=== PATIENT | female | born 1995 | race African-American/Black ===

== ENCOUNTER 2020-03-19 15:17 | Emergency (ER) | payer OTHER, MEDICAID, SELFPAY ==
[2020-03-19 15:20] VITALS: BP 120/65; PULSE 66; RESP 18; TEMP 37.1; O2SAT 97
--- NOTE | 2020-03-19 15:36 | DI.RAD.S_ITS ---
PROCEDURE: XR FINGER LT MIN 2V INDICATIONS: pain possible crush injury to thumb 3 days ago TECHNIQUE: AP hand, 2 views of the 1st finger(s) acquired. COMPARISON: None. FINDINGS: Bones: No fractures or dislocations. No suspicious bony lesions. Soft tissues: No suspicious soft tissue calcifications. IMPRESSION: No displaced fractures are seen by plain film. Dictated by: Antelmo Patel M.D. on 03/19/2020 at 14:55 Approved by: Antelmo Patel M.D. on 03/19/2020 at 14:56
--- NOTE | 2020-03-19 16:09 | ED.UPPEXIN ---
HPI - Extremity Injury (Upper) General Chief Complaint: Extremity Injury, Upper Stated Complaint: thinks broke left wrist Time Seen by Provider: 03/19/20 15:42 Source: patient Mode of arrival: Ambulatory Limitations: no limitations History of Present Illness HPI narrative: Patient is a 24-year-old female to male transgender presenting with left thumb pain. He says he was moving the chicken coop box around 3 days ago, no definite injury but was definitely banged around a lot and now having pain. No numbness or tingling but over the last few days having decreased range of motion. MD complaint: injury to: left and finger (thumb) Related Data Allergies Allergy/AdvReac Type Severity Reaction Status Date / Time No Known Drug Allergies Allergy Verified 03/19/20 15:24 Review of Systems Review of Systems Narrative: GENERAL: Denies chills,fever HEENT: Denies throat pain RESPIRATORY: Denies dyspnea, cough, wheezing CARDIOVASCULAR: Denies chest pain, palpitations GASTROINTESTINAL: Denies nausea, vomiting MUSCULOSKELETAL: See HPI SKIN: No rash, no laceration, no pruritus NEUROLOGIC: Denies weakness, dizziness, headache, numbness 8 point review of systems is negative except for those stated above and HPI Patient History Substance Use Type: marijuana Exam Initial Vital Signs Initial Vital Signs: Vital Signs Temperature 98.8 F 03/19/20 15:20 Pulse Rate 66 03/19/20 15:20 Respiratory Rate 18 03/19/20 15:20 Blood Pressure 120/65 03/19/20 15:20 Pulse Oximetry 97 03/19/20 15:20 GENERAL: Well-appearing, well-nourished and in no acute distress. CARDIOVASCULAR: peripheral pulses in tact, cap refill <2 sec RESPIRATORY: No respiratory distress, speaks in full sentences without difficulty EXTREMITIES: Normal range of motion, no clubbing or edema. Neurovascularly intact Left hand: Mild tenderness at thumb base against resistance good thumb to pinky opposition no significant swelling or erythema NEUROLOGICAL: Cranial nerves II through XII grossly intact. Normal gait and speech. SKIN: Warm, dry, no petechiae, no rashes or lesions. Procedures Orthopedic Splinting/Casting Injury #1: Side: left Upper Extremity Injury Location: finger Upper Extremity Immobilizer: thumb spica Post splinting neuro exam: intact Post splinting vascular exam: intact Placed by: Nursing Course Orders Ordered: ED Orders 03/19/20 15:36 XR finger LT min 2V Stat Vital Signs Vital signs: Vital Signs - 8 hr 03/19/20 15:20 Temperature 98.8 F Pulse Rate 66 Respiratory Rate 18 Blood Pressure 120/65 Pulse Oximetry 97 MDM - Extremity Injury (Upper) Imaging Data Extremity x-ray #1: Radiologist's Impression: PROCEDURE: XR FINGER LT MIN 2V INDICATIONS: pain possible crush injury to thumb 3 days ago TECHNIQUE: AP hand, 2 views of the 1st finger(s) acquired. COMPARISON: None. FINDINGS: Bones: No fractures or dislocations. No suspicious bony lesions. Soft tissues: No suspicious soft tissue calcifications. IMPRESSION: No displaced fractures are seen by plain film. Dictated by: Antelmo Patel M.D. on 03/19/2020 at 14:55 Discharge Plan Departure Patient Disposition: Home Clinical Impression: Left thumb sprain Qualifiers: Encounter type: initial encounter Sprain of finger site: unspecified site Qualified Code(s): S63.602A - Unspecified sprain of left thumb, initial encounter Discharge Date/Time: 03/19/20 16:45 Instructions: DI for Ulnar Collateral Ligament Sprain of Thumb Activity Restrictions/Additional Instructions: *You have been diagnosed with left thumb sprain *What to do: A keep wrist in a splint, as needed and while active. If still having pain after 7-10 days may require repeat x-ray with your PCP *Continue to take medications as directed Ibuprofen 800 mg every 8 hours if needed for [id number] pain *Follow up with your primary care provider in 2-3 days *Return to ER if you should have increased pain swelling or numbness or any new, worsening or concerning symptoms Referrals: Ene Carcamo PA-C [Primary Care Provider] -
== END 2020-03-19 16:45 | disposition home or self-care (01) ==
PROVIDERS: Emergency Provider Emergency Medicine; PCP Physician Assistant
DX: S63.602A Unspecified sprain of left thumb, initial encounter (principal); X58.XXXA Exposure to other specified factors, initial encounter
CPT/HCPCS: 73140; 99282; 99283

== ENCOUNTER 2020-08-01 16:12 | Emergency (ER) | payer OTHER, MEDICAID, SELFPAY ==
[2020-08-01 16:15] VITALS: BP 150/78; PULSE 60; RESP 18; TEMP 35.8; O2SAT 98; BMI 24.2
--- NOTE | 2020-08-01 16:20 | DI.RAD.S_ITS ---
PROCEDURE: XR HIP W PEL IF DONE LT 2V INDICATIONS: joint pain TECHNIQUE: AP pelvis with lateral view(s) of the left hip(s). COMPARISON: None. FINDINGS: Bones: No fractures or dislocations. Pelvic ring appears intact. No suspicious bony lesions. Soft tissues: The visualized bowel gas pattern is normal. No suspicious soft tissue calcifications. IMPRESSION: No trauma found, source of asymmetric left hip pain is not identified. Dictated by: Marco Owusu M.D. on 08/01/2020 at 17:16 Approved by: Marco Owusu M.D. on 08/01/2020 at 17:17
--- NOTE | 2020-08-01 18:57 | ED_ITS ---
HPI - Extremity Injury (Lower) General Chief Complaint: Extremity Injury, Lower Stated Complaint: Lt hip pain Time Seen by Provider: 08/01/20 18:38 Source: patient Mode of arrival: Ambulatory Limitations: no limitations History of Present Illness HPI Narrative: Patient complains of left hip pain as well as left lower back pain low radiating to left calf and foot. Tingling to the foot. No loss control bowel or bladder. No saddle paresthesia. Patient in no distress. Patient states that 2:00 p.m. today at home was bending over to seed cone picker an item. [place] a pop in the lower back and left hip. History of labrum surgery in the left hip. No recent illness fever chills cough cold congestion. Has not been on any immune suppression for the past 1 1/2 years for her ankylosing spondylitis. Currently moved here within last year and a half. Took Tylenol today. Patient forgot about the diclofenac at home. Currently needs referral to family doctor and Orthopedics/Spine. MD complaint: hip injury Related Data Allergies Allergy/AdvReac Type Severity Reaction Status Date / Time No Known Drug Allergies Allergy Verified 03/19/20 15:24 Review of Systems Review of Systems Narrative: GENERAL: Denies chills, fatigue, malaise, fever, sweats. HEENT: Denies sinus pain, ear pain, sore throat, difficulty swallowing RESPIRATORY: Denies dyspnea, cough CARDIOVASCULAR: Denies chest pain, palpitations, edema, GASTROINTESTINAL: Denies nausea, vomiting, abdominal pain, diarrhea, constipation, melena. : Denies dysuria, frequency, hematuria MUSCULOSKELETAL: Complains of muscle or bony pain SKIN: Denies rash, skin lesions NEUROLOGIC: Denies weakness, headache, complains numbness, denies change in speech, confusion PSYCHIATRIC: No SI or HI or hallucinations ROS Unobtainable: All systems reviewed & are unremarkable except as noted in HPI and below Patient History Social History Smoking Status: Never smoker Smoking Status: Never smoker alcohol intake frequency: 0-2 drinks per day Substance Use Type: marijuana Exam Narrative Exam Narrative: GENERAL: patient appears stated age. Well-nourished, well- developed patient, in no distress, not toxic not dyspneic HEAD: Normocephalic. EYES: Pupils equal round and reactive. No scleral icterus. No injection no discharge ENT: Mucous membranes moist. No drooling no tongue elevation no trismus no malocclusion NECK: Trachea midline. Non tender CARDIOVASCULAR: Regular rate and rhythm without murmurs, gallops, or rubs. RESPIRATORY: Clear to auscultation. Breath sounds equal bilaterally. No wheezes, rales, or rhonchi. GASTROINTESTINAL: Abdomen soft, non-tender, nondistended. EXTREMITIES: No gross deformities. Full active range of motion of left lower extremity. Nontender hip knee ankle and foot. Light touch intact to foot and toes. Strong pedal pulse. No pain with straight leg raise. BACK: Mild reproducible left paralumbar muscle tenderness. Able to fully do side bends left and right hand leaned forward and back. No pain with left straight leg raise. NEURO: AOx4. Steady self gait no footdrop strong bilateral patellar reflexes and ankle flexion extension. Light touch intact to left foot and toes. Strong bilateral hip flexion knee flexion as well as ankle flexion extension SKIN: Warm and dry PSYCH: Not anxious, is cooperative Initial Vital Signs Initial Vital Signs: Vital Signs Temperature 96.5 F L 08/01/20 16:15 Pulse Rate 60 08/01/20 16:15 Respiratory Rate 18 08/01/20 16:15 Blood Pressure 150/78 H 08/01/20 16:15 Pulse Oximetry 98 08/01/20 16:15 Course Course Course Narrative: Patient agrees with Toradol IM shot here. Orders Ordered: Discontinued Medications Ketorolac Tromethamine (Ketorolac 60 Mg/2 Ml Vial) 30 mg IM NOW ONE Stop: 08/01/20 18:51 Reevaluation(s) Reevaluation #1: No new issues at time of discharge. Vital Signs Vital signs: Vital Signs - 8 hr 08/01/20 16:15 Temperature 96.5 F L Pulse Rate 60 Respiratory Rate 18 Blood Pressure 150/78 H Pulse Oximetry 98 MDM - Extremity Injury (Lower) Differential Diagnosis Differential diagnosis: Likely other (Lumbar strain lumbar radiculopathy left hip strain) Imaging Data Extremity x-ray #1: Radiologist's Impression: [address] [id number] ReportSigned Patient: Dinorah Morton [facility]#: [id number]: 1995Acct:[id number]/Sex: 25 / FDate of Service: 08/01/20Loc: EDAccession Number: [id number] Procedure: XR hip w pel if done LT 2V Ordering Provider: Nitin Dowd D.O. PROCEDURE: XR HIP W PEL IF DONE LT 2V INDICATIONS: joint pain TECHNIQUE: AP pelvis with lateral view(s) of the left hip(s). COMPARISON: None. FINDINGS: Bones: No fractures or dislocations. Pelvic ring appears intact. No suspicious bony lesions. Soft tissues: The visualized bowel gas pattern is normal. No suspicious soft tissue calcifications. IMPRESSION: No trauma found, source of asymmetric left hip pain is not identified. Dictated by: Marco Owusu M.D. on 08/01/2020 at 17:16 Approved by: Marco Owusu M.D. on 08/01/2020 at 17:17 [facility] Narrative Medical decision making narrative: Patient agrees for outpatient MRI of lumbar spine as well as left hip. Not urgent this time. No neuro deficits. Patient also agrees with outpatient follow-up with Orthopedics and getting a new family doctor. Patient states has diclofenac at home that was forgot to take today. Appropriate for discharge home. No fever. No MRI or laboratory studies indicated this time. Not on immunosuppression. Discharge Plan Departure Patient Disposition: Home Clinical Impression: Acute left lumbar radiculopathy Low back strain Qualifiers: Encounter type: initial encounter Qualified Code(s): S39.012A - Strain of muscle, fascia and tendon of lower back, initial encounter Strain of left hip Qualifiers: Encounter type: initial encounter Qualified Code(s): S76.012A - Strain of muscle, fascia and tendon of left hip, initial encounter Instructions: DI for Back Strain or Sprain, DI for Lumbar Radiculopathy, DI for Hip Pain Activity Restrictions/Additional Instructions: Return if worse or any questions concerns. Call provided offices to [facility] family doctor as well as Orthopedics and oil and gas specialist to see within 1 or 2 weeks. May need outpatient scheduled for MRI of your left hip as well as lower back. May continue home anti-inflammatory medication. Referrals: [facility] [Outside] Ene Carcamo PA-C [Primary Care Provider] - Quinton Mejia MD [Physician] - Stefano Carrizales MD [Physician] - Stand Alone Forms: Work Release Note
== END 2020-08-01 19:07 | disposition home or self-care (01) ==
PROVIDERS: Emergency Provider Emergency Medicine; PCP Physician Assistant
DX: M54.16 Radiculopathy, lumbar region (principal); S39.012A Strain of muscle, fascia and tendon of lower back, initial encounter; S76.012A Strain of muscle, fascia and tendon of left hip, initial encounter; R20.2 Paresthesia of skin
CPT/HCPCS: 73502; 99283

== ENCOUNTER 2022-01-27 09:58 | Emergency (ER) | payer OTHER, MEDICAID, SELFPAY ==
[2022-01-27 10:22] VITALS: BP 116/79; PULSE 63; RESP 16; TEMP 36; O2SAT 97; BMI 22.6
--- NOTE | 2022-01-27 10:25 | DI.RAD.S_ITS ---
PROCEDURE: XR WRIST LT MIN 3V INDICATIONS: swelling, pain TECHNIQUE: 4 views of the wrist were acquired. COMPARISON: None. FINDINGS: Bones: No fractures or dislocations. No suspicious bony lesions. Scaphoid view: No visualized fracture. Soft tissues: No suspicious soft tissue calcifications. IMPRESSION: No visualized acute fracture or dislocation. However, if clinical concern and/or pain persist, short interval imaging followup in 7-10 days is recommended, as occult injury cannot be definitively excluded. Dictated by: Samantha Vieyra M.D. on 01/27/2022 at 10:48 Approved by: aSmantha Vieyra M.D. on 01/27/2022 at 10:49
--- NOTE | 2022-01-27 12:47 | ED.EXTPRO ---
HPI - Extremity Problem <MARY Santos - Last Filed: 01/27/22 12:52> General Chief complaint: Extremity Problem,Nontraumatic Stated complaint: wrist making clicking sound since thursday Time Seen by Provider: 01/27/22 12:09 History of Present Illness HPI Narrative: This is a 26-year-old male who presents to the emergency department complaining left 2nd for four days, tenderness with movements, history of left wrist injury in the past. Patient states that he has had occasional episodes of numbness and tingling in his fingertips but none currently or recently. He denies any elbow pain, shoulder pain, neck pain. Denies any traumatic insult. Denies any range of motion deficit or strength. Related Data Allergies Allergy/AdvReac Type Severity Reaction Status Date / Time No Known Drug Allergies Allergy Verified 03/19/20 15:24 Review of Systems <MARY Santos - Last Filed: 01/27/22 12:52> Review of Systems Narrative: General: denies fever, chills Head/Neck: denies headache, neck pain Eyes: denies visual changes, eye pain Cardio: denies chest pain, palpitations MSK: denies new joint pain, muscle weakness or swelling, endorses left wrist clicking and popping with history of injury in the past Skin: denies rash, itching or wound Neuro: denies numbness, tingling, dizziness Patient History <MARY Santos - Last Filed: 01/27/22 12:52> Social History Smoking Status: Never smoker Smoking Status: Never smoker alcohol intake frequency: 0-2 drinks per day Substance Use Type: marijuana Exam <MARY Santos - Last Filed: 01/27/22 12:52> Narrative Exam Narrative: Independently reviewed vitals signs and nursing notes. General: Awake, alert, nontoxic, no cardiorespiratory distress Head/Neck: Atraumatic, neck supple Eyes: EOMI, conjunctiva normal Nose:no rhinorrhea Mouth/Throat: moist mucus membranes Cardio: Regular rate and rhythm, no peripheral edema MSK: Moves all extremities, neurovascularly intact, range of motion without deficit in left wrist, radial and ulnar pulse palpable, full range of motion of all fingers without deficit, cap refill is brisk, no tenderness over snuffbox, wrist flexion and extension intact without deficit. Skin: Normal capillary refill, no rash Neuro: Normal speech and cognition, normal gait Initial Vital Signs Initial Vital Signs: Vital Signs Temperature 96.8 F L 01/27/22 10:22 Pulse Rate 63 01/27/22 10:22 Respiratory Rate 16 01/27/22 10:22 Blood Pressure 116/79 01/27/22 10:22 Pulse Oximetry 97 01/27/22 10:22 Oxygen Delivery Method 01/27/22 10:22 <Sharyn Hopson DO - Last Filed: 01/29/22 07:09> Initial Vital Signs Initial Vital Signs: Vital Signs Temperature 96.8 F L 01/27/22 10:22 Pulse Rate 63 01/27/22 10:22 Respiratory Rate 16 01/27/22 10:22 Blood Pressure 116/79 01/27/22 10:22 Pulse Oximetry 97 01/27/22 10:22 Oxygen Delivery Method 01/27/22 10:22 Procedures <MARY Santos - Last Filed: 01/27/22 12:52> Orthopedic Splinting/Casting Injury #1: Side: left Upper Extremity Injury Location: wrist Upper Extremity Immobilizer: wrist splint Post splinting neuro exam: intact Post splinting vascular exam: intact Course <MARY Santos - Last Filed: 01/27/22 12:52> Orders Ordered: ED Orders 01/27/22 10:25 XR wrist LT min 3V Stat Vital Signs Vital signs: Vital Signs - 8 hr 01/27/22 10:22 Temperature 96.8 F L Pulse Rate 63 Respiratory Rate 16 Blood Pressure 116/79 Pulse Oximetry 97 Oxygen Delivery Method Room Air <Sharyn Hopson DO - Last Filed: 01/29/22 07:09> Orders Ordered: ED Orders 01/27/22 10:25 XR wrist LT min 3V Stat Vital Signs Vital signs: Vital Signs - 8 hr 01/27/22 10:22 Temperature 96.8 F L Pulse Rate 63 Respiratory Rate 16 Blood Pressure 116/79 Pulse Oximetry 97 Oxygen Delivery Method Room Air MDM - Extremity (Nontraumatic) <MARY Santos - Last Filed: 01/27/22 12:52> Imaging Data Extremity x-ray #1: Radiologist's Impression: PROCEDURE:? XR WRIST LT MIN 3V ? INDICATIONS: swelling, pain ? TECHNIQUE:? 4 views of the wrist were acquired.? ? COMPARISON:? None. ? FINDINGS:? ? Bones:? No fractures or dislocations.? No suspicious bony lesions.? ? Scaphoid view:? No visualized fracture. ? Soft tissues:? No suspicious soft tissue calcifications.? ? IMPRESSION:? No visualized acute fracture or dislocation. However, if clinical concern and/or pain persist, short interval imaging followup in 7-10 days is recommended, as occult injury cannot be definitively excluded. ? ? Dictated by: Samantha Vieyra M.D. on 01/27/2022 at 10:48 ? ? Approved by: Samantha Vieyra M.D. on 01/27/2022 at 10:49 ? MDM Narrative Medical decision making narrative: This is a 26-year-old male who presents to the emergency department complaining of wrist pain, clicking and popping with movements for the last four days. History of left wrist injury in the past, denies any numbness or tingling currently, denies any recent traumatic insult. Left wrist x-ray shows no visualized acute fracture or dislocation. Patient was fitted in a Velcro left wrist splint, reports improved positioning and denies any changes to sensation afterwards. Encouraged to use NSAIDs, ice, rest, avoid overuse and follow-up with orthopedics if not improving with these therapies. Patient works as a household appliances service technician by [employer] encouraged to rest and return to activity tolerated. Patient is appropriate and amenable to discharge home. Vital signs are stable on repeat examination is unremarkable. Patient has been informed of results. Patient has been given strict return to ER precautions for any new or worsening symptoms. Patient understands to follow up closely with outpatient providers as instructed. Patient understands plan and agrees to discharge home. All questions and concerns answered at this time. Discharge Plan Departure Patient Disposition: Home Clinical Impression: Left wrist sprain Qualifiers: Encounter type: initial encounter Qualified Code(s): S63.502A - Unspecified sprain of left wrist, initial encounter Instructions: Wrist Sprain Activity Restrictions/Additional Instructions: *You have been diagnosed with a sprain of your left wrist. Please use ice, rest, anti-inflammatories and a splint to help this heal faster. Avoid overuse, let pain be your guide with activity. If this does not improve with ibuprofen 600 mg every 6-8 hours, wearing a splint for approximately one week, and any other treatments, please follow-up with orthopedics. This is likely inflammation, you can try Voltaren topical gel, CBD cream, or ice as an adjunct for pain. *What to do: *Please continue to take your regular medications as directed. [ ] New medication prescriptions sent to your pharmacy: [ ] [ ] New medication written as a paper prescription [x ] No new medications given *Please follow up with your primary care provider in 2-3 days, call for an appointment. Let them know you were seen in the Emergency Department and that we asked that you be seen for follow-up. We will electronically transmit a record of today's note if your PCP is in our system *If you do not have a primary care provider please contact [phone] to establish care with one of the [facility] primary care providers. *Return to Emergency Department if you should have any new, worsening or concerning symptoms, such as [fever greater than 101F, chills, worsening pain, persistent vomiting or other bothersome symptoms] Referrals: [facility] [Provider Group] Ene Carcamo PA-C [Primary Care Provider] - Visit Report Forms: Patient Portal/API <Sharyn Hopson DO - Last Filed: 01/29/22 07:09> Cosign ED Attending Baljeet Attestation: I was immediately available in the department for consultation. Documentation has been reviewed. I agree with assessment and plan.
== END 2022-01-27 12:47 | disposition home or self-care (01) ==
PROVIDERS: Emergency Provider Nurse Practitioner Critical Care Medicine; PCP Physician Assistant
DX: S63.502A Unspecified sprain of left wrist, initial encounter (principal)
CPT/HCPCS: 73110; 99283

== ENCOUNTER → 2022-02-02 14:54 | Outpatient (CLI) | payer OTHER, MEDICAID, SELFPAY ==
--- NOTE | 2022-02-02 14:57 | DI.RAD.S_ITS ---
PROCEDURE: XR FOREARM LT 2V INDICATIONS: swollen, painful TECHNIQUE: 2 views of the forearm were acquired. COMPARISON: [facility], CR, XR WRIST LT MIN 3V, 01/27/2022, 10:37. FINDINGS: Bones: No fractures or dislocations. No suspicious bony lesions. Soft tissues: Mild soft tissue swelling can be seen. No radiopaque foreign bodies are seen. IMPRESSION: There is mild soft tissue swelling, without radiopaque foreign body or a significant bony abnormality. Dictated by: Antelmo Patel M.D. on 02/02/2022 at 14:42 Approved by: Antelmo Patel M.D. on 02/02/2022 at 14:43
== END ==
PROVIDERS: PCP Nurse Practitioner; Referring Provider Physician Assistant; Visit Provider Physician Assistant
DX: R60.0 Localized edema (principal)
CPT/HCPCS: 73090

== ENCOUNTER 2022-04-06 12:52 | Emergency (ER) | payer OTHER, MEDICAID, SELFPAY ==
[2022-04-06 13:05] VITALS: BP 145/101; PULSE 64; RESP 19; TEMP 35.8; O2SAT 99; BMI 22.6
--- NOTE | 2022-04-06 13:23 | DI.RAD.S_ITS ---
PROCEDURE: XR HAND RT MIN 3V INDICATIONS: injury to middle and pointer TECHNIQUE: 3 views of the hand(s) acquired. COMPARISON: None. FINDINGS: Bandaging material is seen. Bones: No fractures or dislocations. Carpal bones are normally aligned. No suspicious bony lesions. Soft tissues: No suspicious soft tissue calcifications. No radiopaque foreign bodies are seen. IMPRESSION: No acute bony abnormality is seen. No radiopaque foreign bodies are seen. Dictated by: Antelmo Patel M.D. on 04/06/2022 at 13:07 Approved by: Antelmo Patel M.D. on 04/06/2022 at 13:08
--- NOTE | 2022-04-06 17:20 | ED.WOUNDLAC ---
HPI - Wound/Laceration <Cliff Tafoya PA-C - Last Filed: 04/06/22 17:32> General Chief Complaint: Wound/Laceration Stated Complaint: Hand finger injury/laceration Time Seen by Provider: 04/06/22 14:44 Source: patient Mode of arrival: Family Vehicle History of Present Illness HPI narrative: Patient is a 26-year-old male who presents to the emergency room today with complaint of a laceration to his right middle finger. States that he was doing yd work today and had an electric hedge of the head your doctor the 1 hand swelling over his middle finger. Admits to having a tetanus shot within the last 10 years declines 1 today. States he had minimal bleeding from the finger just want to have a somewhat of. Denies any other concerns. Related Data Home Medications Medication Instructions Recorded Confirmed No Known Home Medications 02/02/22 02/02/22 Allergies Allergy/AdvReac Type Severity Reaction Status Date / Time No Known Drug Allergies Allergy Verified 04/06/22 13:15 Review of Systems <Cliff Tafoya PA-C - Last Filed: 04/06/22 17:32> Review of Systems Narrative: R.O.S.: General: No fever, chills or fatigue. Cardiovascular: No chest pain or palpitations Respiratory: No S.O.B. HEENT: No congestion, ear pain, rhinorrhea, sore throat or tinnitus Gastrointestinal: No nausea or vomiting : No urinary concerns Skin: Cut to middle finger.. Musculoskeletal: No pain in muscles or joints, no limitation of range of motion, no paresthesia or numbness. ?? Neurological: Awake, alert and in not apparent distress. No Headaches, changes in vision or other related neurological concerns. Patient History <Cliff Tafoya PA-C - Last Filed: 04/06/22 17:32> Social History Smoking Status: Never smoker Smoking Status: Never smoker alcohol intake frequency: 0-2 drinks per day Substance Use Type: marijuana Exam <JACKIE Kay Last Filed: 04/06/22 17:32> Narrative Exam Narrative: Physical Exam: ? General: normal appearance, well developed, well nourished, alert, and awake. Not in acute distress. ? Head: Normocephalic, no lesions. Chest: Lungs CTAB, no rales, rhonchi or wheezes. ?? Heart: RRR, no murmurs, rubs or gallops. Eyes: PERRLA, EOM's full, conjunctivae clear. ? Neuro: Physiological, no localizing findings, CN3-12 intact. ?? Extremities: Patient has a 5 cm laceration to the middle finger on the volar side proximal to the DIP joint. The area has minimal swelling and minimal minimal drainage of blood this time?? Skin: Normal, no rashes, no lesions noted. ?? PSYCHIATRIC: The mood is good, no blunted affect. Speech is clear. Thought process is linear, thought content is appropriate. The voice is without significant inflection. Gastrointestinal: Soft; NT; ND; Pos BS with Neg. rebound tenderness. No scars or major deformities noted on Visual Inspection. Initial Vital Signs Initial Vital Signs: Vital Signs Temperature 96.5 F L 04/06/22 13:05 Pulse Rate 64 04/06/22 13:05 Respiratory Rate 19 04/06/22 13:05 Blood Pressure 145/101 H 04/06/22 13:05 Pulse Oximetry 99 04/06/22 13:05 Oxygen Delivery Method 04/06/22 13:05 <Shani Chau MD - Last Filed: 04/07/22 11:43> Initial Vital Signs Initial Vital Signs: Vital Signs Temperature 96.5 F L 04/06/22 13:05 Pulse Rate 64 04/06/22 13:05 Respiratory Rate 19 04/06/22 13:05 Blood Pressure 145/101 H 04/06/22 13:05 Pulse Oximetry 99 04/06/22 13:05 Oxygen Delivery Method 04/06/22 13:05 Procedures <Cliff Tafoya PA-C - Last Filed: 04/06/22 17:32> Laceration Repair Laceration 1: Site: hand Side (If applicable): right Size (cm): 2 Description: irregular Depth: simple, single layer Local Anesthetic: lidocaine 2% Pre-repair: irrigated extensively Skin layer closed with: nylon Skin layer suture size: 4-0 Number of sutures: 4 Technique: simple, interrupted Course <Cliff Tafoya PA-C - Last Filed: 04/06/22 17:32> Orders Ordered: Discontinued Medications Lidocaine HCl (Lidocaine 2% Inj Sdv) 5 ml INJ INTRA-OP ONE Stop: 04/06/22 16:48 Last Admin: 04/06/22 17:39 Dose: 5 ml Documented By: COURTNEY Neomycin/Polymyxin/Bacitracin (Neomycin/Polymyxin/Bacitra Ud Oint) 2 each TOP NOW ONE Stop: 04/06/22 17:14 Last Admin: 04/06/22 17:39 Dose: 2 each Documented By: RLS Vital Signs Vital signs: Vital Signs - 8 hr 04/06/22 13:05 Temperature 96.5 F L Pulse Rate 64 Respiratory Rate 19 Blood Pressure 145/101 H Pulse Oximetry 99 Oxygen Delivery Method Room Air <Shani Chau MD - Last Filed: 04/07/22 11:43> Orders Ordered: Discontinued Medications Lidocaine HCl (Lidocaine 2% Inj Sdv) 5 ml INJ INTRA-OP ONE Stop: 04/06/22 16:48 Last Admin: 04/06/22 17:39 Dose: 5 ml Documented By: RLS Neomycin/Polymyxin/Bacitracin (Neomycin/Polymyxin/Bacitra Ud Oint) 2 each TOP NOW ONE Stop: 04/06/22 17:14 Last Admin: 04/06/22 17:39 Dose: 2 each Documented By: RLS Vital Signs Vital signs: Vital Signs - 8 hr 04/06/22 13:05 Temperature 96.5 F L Pulse Rate 64 Respiratory Rate 19 Blood Pressure 145/101 H Pulse Oximetry 99 Oxygen Delivery Method Room Air MDM - Wound/Laceration <Cliff Tafoya PA-C - Last Filed: 04/06/22 17:32> MDM Narrative Medical decision making narrative: Patient is a 26-year-old male who presents emergency with complaint of laceration to the right middle finger. X-ray was negative for foreign body. For interrupted Vicryl sutures were used to close the laceration without complications. Dressing was applied and patient was given instructions for care. Patient was also advised to return in approximately 7 days for suture removals. Patient agrees to plan Discharge Plan Departure Patient Disposition: Home Clinical Impression: Laceration Instructions: DI for Laceration Repair Activity Restrictions/Additional Instructions: *You have been diagnosed with laceration to right middle finger. Four sutures were used for closure laceration I suggest she return to the emergency room or walk-in clinic in VII days for suture removal. Also suggest to keep the sutured area clean and the foreign debris and refrain from any strenuous or extended activities using the right hand. [ ] *What to do: *Please continue to take your regular medications as directed. [ ] New medication prescriptions sent to your pharmacy: [ ] [ ] New medication written as a paper prescription [x] No new medications given *Please follow up with your primary care provider in 2-3 days, call for an appointment. Let them know you were seen in the Emergency Department and that we ask that you be seen in follow up. We will electronically transmit a record of today's note if your PCP is in our system *If you do not have a primary care provider please contact the [facility] Resource line at [phone]. They will ask some questions about your medical history and help get you set up with a doctor in the community. *Return to Emergency Department if you should have any new, worsening or concerning symptoms, such as [fever greater than 101 F, shaking chills, worsening pain, persistent vomiting or other bothersome symptoms] Prescriptions: No Action No Known Home Medications Referrals: Ashwini Momin ARNP [Primary Care Provider] - Visit Report Forms: Patient Portal/API <Shani Chau MD - Last Filed: 04/07/22 11:43> Cosign ED Attending Cosgeraldineature Attestation: I was immediately available in the department for consultation throughout this patient's visit. I agree with documentation as above. Shani Chau MD
--- NOTE | 2022-04-06 17:37 | PC.NURSE ---
ERICK Tafoya, cleansed and sutured patient.
[2022-04-06] MEDS: LIDOCAINE 2% INJ SDV 5 ML INJ (17:39)
[2022-04-06] MEDS: NEOMYCIN/POLYMYXIN/BACITRA UD OINT 2 EACH TOP (17:39)
--- NOTE | 2022-04-06 17:40 | PC.NURSE ---
ERICK Tafoya sutured and dressed patient's wound. discharged patient.
== END 2022-04-06 17:35 | disposition home or self-care (01) ==
PROVIDERS: Emergency Provider Physician Assistant; PCP Nurse Practitioner
DX: S61.212A Laceration without foreign body of right middle finger without damage to nail, initial encounter (principal); W31.89XA Contact with other specified machinery, initial encounter
CPT/HCPCS: 12001; 73130; 99283

== ENCOUNTER → 2022-04-19 14:11 | Outpatient (CLI) | payer OTHER, SELFPAY ==
--- NOTE | 2022-04-19 14:14 | DI.RAD.S_ITS ---
PROCEDURE: XR ANKLE LT MIN 3V INDICATIONS: Left ankle strain TECHNIQUE: 3 views of the ankle were acquired. COMPARISON: None. FINDINGS: Bones: No fractures or dislocations. Ankle mortise is normally aligned. No suspicious bony lesions. The talar dome demonstrates no anjali abnormality. Soft tissues: No tibiotalar joint effusion. Achilles tendon appears normal. IMPRESSION: Ankle plain film study within normal limits. If it would be helpful for clinical management decision making, please consider a dedicated, scheduled ankle MRI for further evaluation (assuming that there is no contraindication). Dictated by: Antelmo Patel M.D. on 04/19/2022 at 14:42 Approved by: Antelmo Patel M.D. on 04/19/2022 at 14:42
== END ==
PROVIDERS: PCP Nurse Practitioner; Referring Provider Nurse Practitioner Family; Visit Provider Nurse Practitioner Family
DX: S96.912A Strain of unspecified muscle and tendon at ankle and foot level, left foot, initial encounter (principal); X58.XXXA Exposure to other specified factors, initial encounter
CPT/HCPCS: 73610

== ENCOUNTER → 2022-05-09 14:57 | Outpatient (CLI) | payer OTHER, MEDICAID, SELFPAY ==
[2022-05-09 15:31] LABS: COVID19 -Nasal RAPID POSITIVE (Negative)
== END ==
PROVIDERS: PCP Nurse Practitioner; Visit Provider Registered Nurse
DX: U07.1 COVID-19 (principal)
CPT/HCPCS: 87635

== ENCOUNTER → 2022-08-20 16:46 | Outpatient (CLI) | payer OTHER, MEDICAID, SELFPAY ==
[2022-08-20 18:32] LABS: Influenza A - CEPHEID Flu A NEGATIVE (NEGATIVE); Influenza B - CEPHEID Flu B NEGATIVE (NEGATIVE); Respiratory Syncytial Virus Negative (Negative)
[2022-08-20 18:35] LABS: COVID-19 CEPHEID 4-PLEX PCR Negative (Negative)
== END ==
PROVIDERS: PCP Nurse Practitioner; Visit Provider Registered Nurse
DX: J06.9 Acute upper respiratory infection, unspecified (principal)
CPT/HCPCS: 0241U

== ENCOUNTER → 2024-06-20 08:49 | Outpatient (CLI) | payer OTHER, SELFPAY ==
--- NOTE | 2024-06-20 09:39 | DI.MRI.S_ITS ---
PROCEDURE: MR ANKLE LT WO CON INDICATIONS: Other specified disorders of synovium and tendon, other site TECHNIQUE: Noncontrast sagittal T1 spin echo and T2 fast spin echo with fat saturation, axial proton density fast spin echo and T2 fast spin echo with fat saturation, coronal T1 spin echo and T2 fast spin echo with fat saturation through the ankle/hindfoot. COMPARISON: None. FINDINGS: Image quality: Excellent. Bones and joints: No bone marrow contusions or fractures. No hindfoot coalitions. No osteochondral injuries of the talar dome. Small amount of tibiotalar joint effusion, no loose bodies. Medial structures: The posterior tibialis tendon is mildly thickened at the level of distal talus and talonavicular joint. The flexor digitorum longus, and flexor hallucis longus tendons are intact. The posterior tibial neurovascular bundle appears normal within the tarsal tunnel, without extrinsic mass effect. The deltoid ligament and spring ligament are intact. Lateral structures: The anterior talofibular, calcaneofibular, and posterior talofibular ligaments appear intact. More superiorly, the anterior and posterior tibiofibular ligaments appear intact, as is the intermalleolar ligament. The tibiofibular syndesmosis is normal in width at 2 mm or less. The peroneus longus and brevis tendons are mildly thickened at the level of lateral malleolus extending to the level of mid to distal calcaneus. No signal abnormality is seen within the sinus tarsi. Anterior structures: The tibialis anterior, extensor hallucis longus, and extensor digitorum longus tendons appear intact. The dorsal talonavicular ligament appears intact. Posterior and plantar structures: Tendinosis involving distal Achilles tendon at its insertion on the posterior calcaneus is seen with thickened tendon and surrounding edema. Medial and lateral bands of the plantar fascia are of normal thickness. No abductor digiti quinti muscle atrophy to suggest Lim neuropathy. IMPRESSION: 1. No marrow edema. No fracture or dislocation. No osteochondral injuries of talar dome. Small joint effusion, no loose bodies. 2. Mild tendinosis involving distal posterior tibialis tendon near its distal insertion. Mild tendinosis involving peroneus longus and brevis tendon at the level of lateral malleolus extending to the level of mid to distal calcaneus. 3. Medial and lateral ankle ligaments are intact. 4. Distal Achilles tendinosis at its posterior calcaneal insertion. No Achilles tendon rupture. Dictated by: Fernandez Plaza M.D. on 06/20/2024 at 13:19 Approved by: Fernandez Plaza M.D. on 06/20/2024 at 13:31
== END ==
LOC: MRI 08:50
PROVIDERS: Referring Provider Orthopaedic Surgery Foot and Ankle Surgery; Visit Provider Orthopaedic Surgery Foot and Ankle Surgery
DX: M67.874 Other specified disorders of tendon, left ankle and foot (principal); M25.472 Effusion, left ankle
CPT/HCPCS: 73721

== ENCOUNTER → 2024-10-28 10:59 | Outpatient (CLI) | payer OTHER, SELFPAY ==
--- NOTE | 2024-10-28 11:01 | DI.RAD.S_ITS ---
PROCEDURE: XR CERVICAL SPINE 2V OR 3V INDICATIONS: Cervicalgia TECHNIQUE: Three views of the cervical spine were acquired. COMPARISON: None. FINDINGS: Cervical spine curvature and alignment: Normal. Bones: There are no osseous abnormalities. Disc spaces: Mild C5-6 degenerative disc disease noted. Soft tissues: No soft tissue swelling, calcification or mass. IMPRESSION: Mild C5-6 degenerative disc disease Dictated by: Eric Herrera M.D. on 10/31/2024 at 8:50 Approved by: Eric Herrera M.D. on 10/31/2024 at 8:50
--- NOTE | 2024-10-28 11:01 | DI.RAD.S_ITS ---
PROCEDURE: XR THORACIC SPINE 3V INDICATIONS: Back injury/pain TECHNIQUE: 3 views of the thoracic spine were acquired. COMPARISON: None. FINDINGS: Thoracic spine curvature and alignment: Slight dextroscoliotic curve lower thoracic upper lumbar spine appreciated Bones: There are no osseous abnormalities. Disc spaces: Normal in height without significant degeneration. Intervertebral foramen: Grossly normal in width. Soft tissues: A cluster of approximately 12 calcifications overlie the central right kidney. There is also a also faint calcification overlying the central left kidney. Suspect nonobstructing stones IMPRESSION: Slight dextroscoliotic curve lower thoracic and lumbar spine Probable non-obstructing stones in both kidneys Dictated by: Eric Herrera M.D. on 10/31/2024 at 8:50 Approved by: Eric Herrera M.D. on 10/31/2024 at 8:52
--- NOTE | 2024-10-28 11:01 | DI.RAD.S_ITS ---
PROCEDURE: XR KNEE LT 3V INDICATIONS: Right knee pain/injury TECHNIQUE: 3 views of the knee were acquired. COMPARISON: None. FINDINGS: Bones: There are no fracture or other osseous abnormalities. Joints: The tibialfemoral and patellofemoral joints are normal in width and alignment without arthritic change. . Moderate effusion noted. Soft tissues: Normal IMPRESSION: Moderate posttraumatic effusion. Dictated by: Eric Herrera M.D. on 10/31/2024 at 8:52 Approved by: Eric Herrera M.D. on 10/31/2024 at 8:53
== END ==
PROVIDERS: Referring Provider Nurse Practitioner Family; Visit Provider Nurse Practitioner Family
DX: M41.84 Other forms of scoliosis, thoracic region (principal); M41.86 Other forms of scoliosis, lumbar region; N20.0 Calculus of kidney; M25.462 Effusion, left knee; M50.322 Other cervical disc degeneration at C5-C6 level
CPT/HCPCS: 72040; 72072; 73562

== ENCOUNTER 2025-01-11 20:55 | Emergency (ER) | payer OTHER, MEDICAID, SELFPAY ==
[2025-01-11 21:03] VITALS: BP 140/88; PULSE 94; RESP 18; TEMP 37.2; O2SAT 98; BMI 23.3
[2025-01-11 21:41] LABS: COVID19 -Nasal RAPID Negative (Negative)
[2025-01-11 21:46] LABS: UR Morphine/Opiate cutoff 300 Negative (Negative); Urine MDMA Negative (Negative); Urine Methamphetamines Negative (Negative); Urine Tetrahydrocannabinol Positive (Negative); Urine Tricyclic Antidepressant Negative (Negative)
[2025-01-11 21:48] LABS: Add Manual Diff / Slide Review NO; Hematocrit 48.3 % (41-53); Hemoglobin 16.3 g/dL (13.5-17.5); Lymphocytes Absolute Auto 2600 /uL (1100-4500); Mean Corpuscular HGB Conc 33.8 % (30-36); Mean Corpuscular Hemoglobin 32.1 PG (26-34); Mean Corpuscular Volume 95.0 fL (80-100); Platelet Count 213 X10^3/uL (150-400)
[2025-01-11 21:50] LABS: Culture Indicated Urine Cult Not Indicated
[2025-01-11 22:02] LABS: Alanine Aminotransferase 15 IU/L (<50); Albumin 4.7 g/dL (3.5-5.0); Albumin Globulin Ratio 1.5 (1.0-2.8); Alkaline Phosphatase 38 U/L (38-126); Blood Urea Nitrogen 7 mg/dL (9-20); Calcium 9.1 mg/dL (8.4-10.2); Carbon Dioxide 25 mmol/L (22-32); Chloride 102 mmol/L (98-107); Estimated Glomerular Filt Rate > 60 mL/min (>60); Globulin 3.1 g/dL (1.7-4.1); Glucose 89 mg/dL (70-99); HEMOLYSIS < 15 (0-50); Potassium 3.5 mmol/L (3.4-5.1); Sodium 138 mmol/L (137-145); Total Protein 7.8 g/dL (6.3-8.2)
[2025-01-11 22:10] LABS: Ethanol (ETOH) 25 mg/dL (<10)
[2025-01-11 22:45] LABS: TSH w/ Reflex to FT4 0.81 uIU/mL (0.47-4.68)
--- NOTE | 2025-01-11 22:51 | ED.PSYCH ---
HPI - Psych <Moises Zeng MD - Last Filed: 01/13/25 03:14> General Chief Complaint: Psychiatric Symptoms Stated Complaint: SI Time Seen by Provider: 01/11/25 22:29 Source: EMS Mode of arrival: Ambulatory History of Present Illness HPI Narrative: 29-year-old male with history of bipolar disorder diagnosed about 1-1/2 years ago, has psychiatric and psychology care providers, prescribed lamotrigine 200 mg by mouth nightly, last week missed a couple of doses, as felt enraged and [id number] with his bipolar disorder, destroyed property in the home and was yelling in front of his girlfriend/children and scared them. He has had thoughts of hurting himself, briefly impulsively turned into traffic thinking of hurting himself, but then quickly turned out of harm's way. Denies ingestion of pills. Denies bodily injuries. Has had drinking of alcohol recent, no withdrawal symptoms. No prior inpatient psychiatric placement, but feels like he is out of control, and needs help, having both suicidal ideation and some homicidal ideation/rage symptoms. Related Data Home Medications ?Medication ?Instructions ?Recorded ?Confirmed lamotrigine 200 mg tablet 200 mg PO DAILY 10/28/24 10/28/24 (Lamictal) risperidone 2 mg tablet (Risperdal) 2 mg PO DAILY 10/28/24 10/28/24 Allergies Allergy/AdvReac Type Severity Reaction Status Date / Time No Known Drug Allergies Allergy Verified 01/11/25 21:03 Review of Systems <Benjamin Jonas MD - Last Filed: 01/15/25 18:33> Review of Systems Narrative: GENERAL: Negative chills, fatigue, malaise, fever, sweats. HEENT: Negative sinus pain, ear pain, sore throat RESPIRATORY: Negative dyspnea, cough CARDIOVASCULAR: Negative chest pain, palpitations GASTROINTESTINAL: Negative vomiting, nausea, abdominal pain : Negative dysuria, frequency, hematuria MUSCULOSKELETAL: Negative muscle or bony pain SKIN: Negative rash, skin lesions NEUROLOGIC: Negative weakness, numbness PSYCH: Positive agitation ROS Unobtainable: All systems reviewed & are unremarkable except as noted in HPI and below Patient History <Moises Zeng MD - Last Filed: 01/13/25 03:14> Social History Smoking Status: Never smoker Smoking Status: Never smoker alcohol intake frequency: 0-2 drinks per day Alcohol type: hard liquor Exam <Moises Zeng MD - Last Filed: 01/13/25 03:14> Narrative Exam Narrative: GENERAL: Well-developed patient, in mild distress. HEAD: Atraumatic. Normocephalic. EYES: Pupils equal round and reactive. Extraocular motions intact. No scleral icterus. No injection or drainage. ENT: Nose without bleeding, purulent drainage. Throat without erythema, tonsillar hypertrophy or exudate. Airway patent. NECK: Trachea midline. Non tender CARDIOVASCULAR: Regular rate and rhythm without murmurs, gallops, or rubs. RESPIRATORY: Clear to auscultation. Breath sounds equal bilaterally. No wheezes, rales, or rhonchi. GASTROINTESTINAL: Abdomen soft, non-tender, nondistended. EXTREMITIES: No edema or joint tenderness. BACK: Nontender without deformity or crepitance. No flank tenderness. NEURO: AOx3. Motor functions grossly nonfocal. SKIN: No rash or erythema of visible areas Initial Vital Signs Initial Vital Signs: Vital Signs Temperature 99 F 01/11/25 21:03 Pulse Rate 94 H 01/11/25 21:03 Respiratory Rate 18 01/11/25 21:03 Blood Pressure 140/88 01/11/25 21:03 Pulse Oximetry 98 01/11/25 21:03 Oxygen Delivery Method Room Air 01/11/25 21:03 <Benjamin Jonas MD - Last Filed: 01/15/25 18:33> Initial Vital Signs Initial Vital Signs: Vital Signs Temperature 99 F 01/11/25 21:03 Pulse Rate 94 H 01/11/25 21:03 Respiratory Rate 18 01/11/25 21:03 Blood Pressure 140/88 01/11/25 21:03 Pulse Oximetry 98 01/11/25 21:03 Oxygen Delivery Method Room Air 01/11/25 21:03 Course <Moises Zeng MD - Last Filed: 01/13/25 03:14> Orders Ordered: Discontinued Medications Lamotrigine (Lamotrigine 100 Mg Tablet) 200 mg PO NOW ONE Stop: 01/11/25 23:00 Last Admin: 01/12/25 00:45 Dose: 200 mg Documented By: AB Nicotine (Nicotine 14 Patch) 14 mg TOP NOW ONE Stop: 01/12/25 00:22 Last Admin: 01/12/25 00:45 Dose: 14 mg Documented By: AB Vital Signs Vital signs: Vital Signs - 8 hr 01/12/25 19:28 Pulse Rate 82 Respiratory Rate 20 Blood Pressure 138/77 Pulse Oximetry 98 Oxygen Delivery Method Room Air <Benjamin Jonas MD - Last Filed: 01/15/25 18:33> Orders Ordered: Discontinued Medications Lamotrigine (Lamotrigine 100 Mg Tablet) 200 mg PO NOW ONE Stop: 01/11/25 23:00 Last Admin: 01/12/25 00:45 Dose: 200 mg Documented By: AB Nicotine (Nicotine 14 Patch) 14 mg TOP NOW ONE Stop: 01/12/25 00:22 Last Admin: 01/12/25 00:45 Dose: 14 mg Documented By: AB Vital Signs Vital signs: Vital Signs - 8 hr 01/12/25 19:28 Pulse Rate 82 Respiratory Rate 20 Blood Pressure 138/77 Pulse Oximetry 98 Oxygen Delivery Method Room Air MDM - Psych <Moises Zeng MD - Last Filed: 01/13/25 03:14> Lab Data Attestation: I reviewed the patient's lab results. Lab results narrative: White blood cell count 9200, hemoglobin 16.3, platelets adequate. Glucose 89. Normal renal function. Normal serum CO2 and electrolytes. Normal liver functions. Ethanol level 25 measurable but low. UDS positive for cannabis otherwise negative. COVID screen negative. 01/11/25 21:35 01/11/25 21:35 Labs: Lab Results 01/11/25 01/11/25 01/11/25 Range/Units 21:02 21:24 21:35 WBC 9.2 (4.5-11.0) X10^3/uL RBC 5.09 (4.5-5.9) X10^6/uL Hgb 16.3 (13.5-17.5) g/dL Hct 48.3 (41-53) % MCV 95.0 (80-100) fL MCH 32.1 (26-34) PG MCHC 33.8 (30-36) % RDW 13.1 (11.6-14.8) % Plt Count 213 (150-400) X10^3/uL Neut % (Auto) 62.6 (50-75) % Lymph % (Auto) 28.1 (25-40) % Callahan % (Auto) 7.9 (3-14) % Eos % (Auto) 0.5 L (2-4) % Baso % (Auto) 0.9 (0-2) % Neut # (Auto) 5700 (0361-7821) /uL Lymph # (Auto) 2600 (9326-9173) /uL Callahan # (Auto) 700 (0-900) /uL Eos # (Auto) 0 (0-450) /uL Baso # (Auto) 100 (0-100) /uL Sodium 138 (137-145) mmol/L Potassium 3.5 (3.4-5.1) mmol/L Chloride 102 (98-107) mmol/L Carbon Dioxide 25 (22-32) mmol/L BUN 7 L (9-20) mg/dL Creatinine 0.79 (0.66-1.25) mg/dL Estimated GFR > 60 (>60) mL/min BUN/Creatinine Ratio 8.9 (6-22) Glucose 89 (70-99) mg/dL Calcium 9.1 (8.4-10.2) mg/dL Total Bilirubin 0.5 (0.2-1.3) mg/dL AST 23 (17-59) IU/L ALT 15 (<50) IU/L Alkaline Phosphatase 38 (38-126) U/L Total Protein 7.8 (6.3-8.2) g/dL Albumin 4.7 (3.5-5.0) g/dL Globulin 3.1 (1.7-4.1) g/dL Albumin/Globulin Ratio 1.5 (1.0-2.8) TSH 0.81 (0.47-4.68) uIU/mL Urine RBC None seen (0-5/HPF) Urine WBC None seen (0-5/HPF) Ur Squamous Epith Cells 0-1 /hpf (0-5/HPF) Urine Bacteria None seen (None) Ur Culture Indicated? Cult not indicated Vol Urine Centrifuged 10ml (spun) U Opiates 300ng/mL cut Negative (Negative) Ur Oxycodone Screen Negative (Negative) Urine Methadone Screen Negative (Negative) Ur Barbiturates Screen Negative (Negative) U Tricyclic Antidepress Negative (Negative) Ur Phencyclidine Scrn Negative (Negative) Ur Amphetamines Screen Negative (Negative) U Methamphetamines Scrn Negative (Negative) Ur MDMA Scrn (Ecstasy) Negative (Negative) U Benzodiazepines Scrn Negative (Negative) Urine Cocaine Screen Negative (Negative) U Marijuana (THC) Screen Positive H (Negative) Urine pH TNP Urine Specific [place] TNP Ethyl Alcohol 25 H (<10) mg/dL Ur Creatinine TNP SARS-CoV-2 (PCR) Negative (Negative) Urine Dip Bedside Urine Glucose Negative Bedside Urine Bilirubin - Negative Bedside Urine Ketone +/- 5 Urine Specific [place] 1.030 Bedside Urine Occult Blood - Negative Bedside Urine pH 6.0 Bedside Urine Protein +/- 15 Bedside Urine Urobilinogen +/- 1mg Bedside Urine Nitrite - Negative Bedside Urine Leukocytes - Negative Esterase MDM Narrative Medical decision making narrative: 29-year-old male with history of bipolar disorder, recently feels and raised, yelling and breaking things in front of girlfriend/children, impulsive you drove into traffic with feelings of trying to hurt himself but avoided being hit, recent alcohol use. His missed dose of his lamotrigine. Due for evening dose lamotrigine 200 mg. Screening labs sent. Lab data: White blood cell count 9200, hemoglobin 16.3, platelets adequate. Glucose 89. Normal renal function. Normal serum CO2 and electrolytes. Normal liver functions. Ethanol level 25 measurable but low. UDS positive for cannabis otherwise negative. COVID screen negative. Lamotrigine 200 mg dose given for this evening. 2300, implementation services analyst consult when available later this morning for disposition planning. 0700, signed out to Dr Jonas. <Benjamin Jonas MD - Last Filed: 01/15/25 18:33> Lab Data Labs: Lab Results 01/11/25 01/11/25 01/11/25 Range/Units 21:02 21:24 21:35 WBC 9.2 (4.5-11.0) X10^3/uL RBC 5.09 (4.5-5.9) X10^6/uL Hgb 16.3 (13.5-17.5) g/dL Hct 48.3 (41-53) % MCV 95.0 (80-100) fL MCH 32.1 (26-34) PG MCHC 33.8 (30-36) % RDW 13.1 (11.6-14.8) % Plt Count 213 (150-400) X10^3/uL Neut % (Auto) 62.6 (50-75) % Lymph % (Auto) 28.1 (25-40) % Callahan % (Auto) 7.9 (3-14) % Eos % (Auto) 0.5 L (2-4) % Baso % (Auto) 0.9 (0-2) % Neut # (Auto) 5700 (8678-2681) /uL Lymph # (Auto) 2600 (3156-8878) /uL Callahan # (Auto) 700 (0-900) /uL Eos # (Auto) 0 (0-450) /uL Baso # (Auto) 100 (0-100) /uL Sodium 138 (137-145) mmol/L Potassium 3.5 (3.4-5.1) mmol/L Chloride 102 (98-107) mmol/L Carbon Dioxide 25 (22-32) mmol/L BUN 7 L (9-20) mg/dL Creatinine 0.79 (0.66-1.25) mg/dL Estimated GFR > 60 (>60) mL/min BUN/Creatinine Ratio 8.9 (6-22) Glucose 89 (70-99) mg/dL Calcium 9.1 (8.4-10.2) mg/dL Total Bilirubin 0.5 (0.2-1.3) mg/dL AST 23 (17-59) IU/L ALT 15 (<50) IU/L Alkaline Phosphatase 38 (38-126) U/L Total Protein 7.8 (6.3-8.2) g/dL Albumin 4.7 (3.5-5.0) g/dL Globulin 3.1 (1.7-4.1) g/dL Albumin/Globulin Ratio 1.5 (1.0-2.8) TSH 0.81 (0.47-4.68) uIU/mL Urine RBC None seen (0-5/HPF) Urine WBC None seen (0-5/HPF) Ur Squamous Epith Cells 0-1 /hpf (0-5/HPF) Urine Bacteria None seen (None) Ur Culture Indicated? Cult not indicated Vol Urine Centrifuged 10ml (spun) U Opiates 300ng/mL cut Negative (Negative) Ur Oxycodone Screen Negative (Negative) Urine Methadone Screen Negative (Negative) Ur Barbiturates Screen Negative (Negative) U Tricyclic Antidepress Negative (Negative) Ur Phencyclidine Scrn Negative (Negative) Ur Amphetamines Screen Negative (Negative) U Methamphetamines Scrn Negative (Negative) Ur MDMA Scrn (Ecstasy) Negative (Negative) U Benzodiazepines Scrn Negative (Negative) Urine Cocaine Screen Negative (Negative) U Marijuana (THC) Screen Positive H (Negative) Urine pH TNP Urine Specific [place] TNP Ethyl Alcohol 25 H (<10) mg/dL Ur Creatinine TNP SARS-CoV-2 (PCR) Negative (Negative) Urine Dip Bedside Urine Glucose Negative Bedside Urine Bilirubin - Negative Bedside Urine Ketone +/- 5 Urine Specific [place] 1.030 Bedside Urine Occult Blood - Negative Bedside Urine pH 6.0 Bedside Urine Protein +/- 15 Bedside Urine Urobilinogen +/- 1mg Bedside Urine Nitrite - Negative Bedside Urine Leukocytes - Negative Esterase MDM Narrative Medical decision making narrative: 29-year-old male with history of bipolar disorder, recently feels and raised, yelling and breaking things in front of girlfriend/children, impulsive you drove into traffic with feelings of trying to hurt himself but avoided being hit, recent alcohol use. His missed dose of his lamotrigine. Due for evening dose lamotrigine 200 mg. Screening labs sent. Lab data: White blood cell count 9200, hemoglobin 16.3, platelets adequate. Glucose 89. Normal renal function. Normal serum CO2 and electrolytes. Normal liver functions. Ethanol level 25 measurable but low. UDS positive for cannabis otherwise negative. COVID screen negative. Lamotrigine 200 mg dose given for this evening. 2300, implementation services analyst consult when available later this morning for disposition planning. 0700, signed out to Dr Jonas. January 12, 2025 at 7:[address] Jonas, sign-out from Dr. Zeng, patient is medically cleared. Has not required any restraints or seclusion. Patient has been cooperative. Knee social work consult. 7:30 a.m.. Patient resting comfortably. No distress. No new issues reported by staff. 9:57 a.m.. Patient resting comfortably. Still waiting for social work to see patient. 6:00 p.m.. social Susan work has been able to find transfer facility, [facility], has accepted patient Discharge Plan Departure Patient Disposition: Xfer Psychiatric Hosp Clinical Impression: Suicidal ideation, History of bipolar disorder Prescriptions: No Action lamotrigine [Lamictal] 200 mg tablet 200 mg PO DAILY risperidone [Risperdal] 2 mg tablet 2 mg PO DAILY
--- NOTE | 2025-01-12 00:35 | PC.NURSE ---
At this time will continue to monitor pt every 15 minutes. Plan with pt is to call nurse when he is in need of something or someone to speak with. Pt is willing to wait for mental health assessment and consultation tomorrow.
[2025-01-12] MEDS: NICOTINE 14 PATCH 14 MG TOP (00:45)
--- NOTE | 2025-01-12 06:55 | PC.NURSE ---
Pt up and about only a couple times to have his phone charged and to retrieve phone back. Pt has been calm and cooperative during this nurses shift 2300 - 0700.
--- NOTE | 2025-01-12 11:54 | CM.SWNOTE ---
ED ELECTRO MECHANICAL ASSEMBLER Assessment Note: ELECTRO MECHANICAL ASSEMBLER - Multi Site Leasing Consultant Assessment ELECTRO MECHANICAL ASSEMBLER/Multi Site Leasing Consultant Assessment Time Spent with Patient Start date 01/12/25 Visit Start Time 11:10 End date 01/12/25 Visit End Time 11:25 Total time Care 15 minutes Management spent on patient visit-in minutes Mental Health Screening Include Onset, Duration, Intensity Presenting Problem Patient presented to the ED for uncontrollable rage, suicidal ideation. Patient has a hx of PTSD, Bipolar 1, and Anxiety/Depression. Precipitating Event( Patient sees a [facility]iatrist at the [facility] (Dr. Butt) and s) states he has been requesting a medication change. He recently had his medication changed (added Ziprasidone) last week but has not received this medication yet. Patient explains he has been very impulsive and his mood has been unpredictable. He states he has been trying to manage this for the past several months with his [facility] Psych Provider but feels he has been increasingly impulsive and destructive. Patient's partner and stepchildren are in the process of moving out of the home because pt has not been able to control emotions/actions. Patient denies any physical or verbal abuse towards them but he does admit to punching ingram, throwing items at the wall and yelling profusely. Patient states he quit his job two months ago as well. Patient Strengths Patient is communicative and seeking help, voluntary. Current Behavioral [facility] Psych - Dr. Jae Butt Health Provider(s) Include Facility, Provider, Ph. # Psych. Hx Mental PTSD, Bipolar 1, Anxiety/Depression Health and Chemical Medications: Ziprasidone, Lamotrigine, Testosterone Dependency Family Hx of None reported. Behavioral Abuse Psychiatric Hospitalization in [place] when he was a teenager. Hospitalizations ( date(s)/location) Psychosocial Patient is a 29yo male, resident of [place] with his information & partner and two stepchildren (12yo and 4yo). 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 He is 100% Service Connected with the [facility]. Legal Concerns Legal Matters - None reported. Outstanding Issues Mental Status Orientation (Person/ AOx3 Place/Time) Stated Mood Angry Affect (Congruent Flat, tearful, depressed. with Mood?) Thought Content - None reported, none identified during assessment. Specify/Describe Obsessions, Delusions, Hallucinations Thought Processes ( Logical, coherent Logical-Coherent- Goal Directed- Detailed-Tangential- Circumstantial- Logical-Disorganized -Thought Blocking) Speech (Normal-Slow- Normal Pjsisui-Xzhjd-Ddmb- Loud-Pressured) Motor (Normal- Normal Yilwtkoed-Vrue-Qhfqt ) Insight (Good-Fair- Good Poor/Limited) Judgement (Good-Fair Good -Poor/Limited) Impulse Control ( Impaired Adequate-Impaired) Memory (Immediate- Intact Recent-Remote, Impaired-Intact) Concentration ( Intact Intact-Impaired) Attention (Intact- Intact Impaired) Behavior ( Appropriate Appropriate- Inappropriate) Additional Comment Patient is calm, cooperative and communicative during this assessment. Risk Assessment Suicidal Ideation ( Yes Plan) Homicidal Ideation ( No Plan) Comment [place]-SUICIDE SEVERITY RATING SCALE 1) Have you wished you were or wished you could go to sleep and not wake up? YES 2) Have you actually had any thoughts of killing yourself? YES 3) Have you been thinking about how you might do this? My girlfriend had a gun in the house, I found out yesterday that she hid the tello from me to the safe. That's when I went out of the house and started long boarding on the freeway and swerving into traffic. I didn't want to end my life but I am just so impulsive and out of control right now. 4) Have you had these thoughts and had some intention of acting on them? NO 5) Have you started to work out or worked out the details of how to kill yourself? Do you intend to carry out this plan? YES 6) Have you ever done anything, started to do anything, or prepared to do anything to end your life? NO If YES, ask: Was this within the past three months? NO Intervention Intervention Reviewed chart and discussed with ED Provider pt's medical status and discharge needs. ED ELECTRO MECHANICAL ASSEMBLER meets with patient. Patient endorses he feels out of control of his emotions and actions, states he has passive SI that has been increasing and rage that he can't control. Patient feels he needs to stabilize on the right medication as he has been attempting outpatient with his Psych Provider. Patient denies hallucinations or delusions. ED ELECTRO MECHANICAL ASSEMBLER and patient discuss goals of care. Patient explains they are agreeable to receive inpatient behavioral health hospitalization at this time. At this time, it is the opinion of this ELECTRO MECHANICAL ASSEMBLER that patient would benefit from inpatient psychiatric hospitalization for SI, crisis/medication management. ELECTRO MECHANICAL ASSEMBLER informs ED provider, Dr. Jonas, who indicates agreement. ELECTRO MECHANICAL ASSEMBLER informs ANN Carroll. Plan RA Plan Once patient is medically clear, ED staff will attempt to find inpatient placement for patient. IVAN Shaikh
--- NOTE | 2025-01-12 13:20 | W.PC.EDHO ---
Report given to Mariama
[2025-01-12 13:35] VITALS: BP 134/86; PULSE 74; RESP 16; O2SAT 100
--- NOTE | 2025-01-12 16:07 | CM.SWNOTE ---
ED ADVENTURE CHALLENGE INSTRUCTOR Note: ED ADVENTURE CHALLENGE INSTRUCTOR initiated bed search for inpatient treatment. ADVENTURE CHALLENGE INSTRUCTOR sent packet for review. ADVENTURE CHALLENGE INSTRUCTOR calls [facility], it was reported that there are beds available but only one person reviewing with multiple referrals in their own ED. ADVENTURE CHALLENGE INSTRUCTOR sent packet for review but they might not be able to review on this date. ADVENTURE CHALLENGE INSTRUCTOR calls [facility], it was reported that there are beds available, ADVENTURE CHALLENGE INSTRUCTOR completed phone screening with Intake Margo. ADVENTURE CHALLENGE INSTRUCTOR sent packet for review. ADVENTURE CHALLENGE INSTRUCTOR received call from Margo at [facility], Intake reports patient is accepted for inpatient treatment, they are requesting patient to arrive at their facility after 1999. Provider: Dr. Jag Jordan MD RN-RN Report#: [phone] ADVENTURE CHALLENGE INSTRUCTOR called [facility] and coordinated BLS transport for patient from ED at 1929, to arrive at facility at 2029. Plan: Pt to discharge to [facility] via [facility] at 0 with an arrival at 2029. ED staff following for cooridnation of discharge plans. IVAN Shaikh
[2025-01-12 19:28] VITALS: BP 138/77; PULSE 82; RESP 20; O2SAT 98
== END 2025-01-12 19:45 ==
PROVIDERS: Emergency Medicine; Emergency Provider Emergency Medicine
DX: R45.851 Suicidal ideations (principal); Z86.59 Personal history of other mental and behavioral disorders
CPT/HCPCS: 80053; 80305; 80320; 81003; 81015; 84443; 85025; 87635; 99284

== ENCOUNTER → 2025-03-21 12:55 | Outpatient (CLI) | payer OTHER, SELFPAY ==
[2025-03-21 15:04] LABS: Urine Chlamydia NOT DETECTED; Urine N gonorrhoeae NOT DETECTED
== END ==
PROVIDERS: Visit Provider Chiropractor
DX: Z11.3 Encounter for screening for infections with a predominantly sexual mode of transmission (principal); N89.8 Other specified noninflammatory disorders of vagina
CPT/HCPCS: 87210; 87491; 87591

== ENCOUNTER 2025-03-25 21:22 | Emergency (ER) | payer OTHER, SELFPAY ==
[2025-03-25 21:43] VITALS: BP 124/72; PULSE 68; RESP 15; TEMP 37; O2SAT 96; BMI 22.6
[2025-03-26 00:17] VITALS: BP 126/75; PULSE 64; O2SAT 100
[2025-03-26 00:30] VITALS: PULSE 57; O2SAT 99
--- NOTE | 2025-03-26 01:05 | ED_ITS ---
HPI - Recheck/Abnormal Lab/Rx General Chief Complaint: Recheck/Abnormal Lab/Rx Stated Complaint: [facility] sent abnormal labs / recheck Time Seen by Provider: 03/26/25 00:46 Source: patient Mode of arrival: Ambulatory History of Present Illness HPI narrative: 29-year-old male transgender F2M preoperative recently seen with complaint of vaginal discharge, left before complete results from walk-in clinic, urine chlamydia and gonorrhea reportedly negative, BV was reportedly positive, not yet treated, still having vaginal discharge. No pelvic pain, fevers chills or nausea or vomiting. He is interested in being treated for his BV. Related Data Home Medications ?Medication ?Instructions ?Recorded ?Confirmed lamotrigine 200 mg tablet 200 mg PO DAILY 10/28/24 (Lamictal) lithium carbonate 300 mg 600 mg PO ONCE PM 03/21/25 0 03/25/25 tablet,extended release Previous Rx's ?Medication ?Instructions ?Recorded metronidazole 0.75 % topical gel 1 applic topical BEDT DIONE 5 days 03/26/25 #45 grams Allergies Allergy/AdvReac Type Severity Reaction Status Date / Time No Known Drug Allergies Allergy Verified 03/25/25 21:38 Patient History tobacco type: vaping alcohol intake frequency: 0-2 drinks per day Alcohol type: hard liquor Exam Narrative Exam Narrative: GENERAL: Well-developed patient, in mild distress. HEAD: Atraumatic. Normocephalic. EYES: Pupils equal round and reactive. Extraocular motions intact. No scleral icterus. No injection or drainage. ENT: Nose without bleeding, purulent drainage. Throat without erythema, tonsillar hypertrophy or exudate. Airway patent. NECK: Trachea midline. Non tender CARDIOVASCULAR: Regular rate and rhythm without murmurs, gallops, or rubs. RESPIRATORY: Clear to auscultation. Breath sounds equal bilaterally. No wheezes, rales, or rhonchi. GASTROINTESTINAL: Abdomen soft, non-tender, nondistended. : Deferred, patient did not want exam for now, just wanted Rx for BV recent dx not yet treated. EXTREMITIES: No edema or joint tenderness. BACK: Nontender without deformity or crepitance. No flank tenderness. NEURO: AOx3. Motor functions grossly nonfocal. SKIN: No rash or erythema of visible areas Initial Vital Signs Initial Vital Signs: Vital Signs Temperature 98.6 F 03/25/25 21:43 Pulse Rate 68 03/25/25 21:43 Respiratory Rate 15 03/25/25 21:43 Blood Pressure 124/72 03/25/25 21:43 Pulse Oximetry 96 03/25/25 21:43 Oxygen Delivery Method Room Air 03/25/25 21:43 Course Orders Ordered: ED Orders 03/26/25 00:47 Chlamydia Gonorrhea PCR -URINE Stat Urinalysis and Microscopic Stat Vital Signs Vital signs: Vital Signs - 8 hr 03/26/25 01:31 03/26/25 01:31 Pulse Rate 65 Blood Pressure 144/85 H Pulse Oximetry 99 MDM - Recheck/Abnormal Lab/Rx MDM Narrative Medical decision making narrative: Transgender preoperative F2M with recent STI eval left cllinic before labs pending. Aware GC/chalmydia was negative, learned that BV was positive but not yet treated. Would like Rx. Given Rx for MetroGel x5 days course. DC home, FU return precuations discussed. Discharge Plan Departure Patient Disposition: Home Clinical Impression: Bacterial vaginosis Activity Restrictions/Additional Instructions: Vaginal discharge symptoms, recent evaluation for STI, prior clinic lab information negative for gonorrhea and chlamydia but was positive for bacterial vaginosis (Gardnerella) which has not yet been treated. Still having vaginal discharge symptoms. Interested in treatment. Metronidazole gel 1 applicator nightly for 5 day course prescription sent. Recheck with your regular provider if symptoms are not improved after course of treatment. Return earlier to this/nearest emergency department for any change worsening symptoms or any concerns prior. Prescriptions: New metronidazole 0.75 % gel 1 applic topical BEDTIME 5 Days Qty: 45 0RF No Action lamotrigine [Lamictal] 200 mg tablet 200 mg PO DAILY lithium carbonate 300 mg tablet extended release 600 mg PO ONCE PM Referrals: Miscellaneous,Doctor, [Primary Care Provider, Medical] Stand Alone Forms: Patient Portal/API
[2025-03-26 01:31] VITALS: BP 144/85; PULSE 65; O2SAT 99
== END 2025-03-26 01:56 | disposition home or self-care (01) ==
PROVIDERS: Emergency Provider Emergency Medicine
DX: N76.0 Acute vaginitis (principal); Z11.3 Encounter for screening for infections with a predominantly sexual mode of transmission
CPT/HCPCS: 99281

== ENCOUNTER 2025-04-05 20:49 | Emergency (ER) | payer OTHER, SELFPAY ==
[2025-04-05 20:54] VITALS: BP 128/87; PULSE 69; RESP 16; TEMP 36.8; O2SAT 100; BMI 22.6
--- NOTE | 2025-04-05 23:48 | ED.RECABL ---
HPI - Recheck/Abnormal Lab/Rx General Chief Complaint: Recheck/Abnormal Lab/Rx Stated Complaint: abnormal labs (BV) Time Seen by Provider: 04/05/25 23:47 Source: patient Mode of arrival: Ambulatory History of Present Illness HPI narrative: Patient is a 29-year-old female to male transgender presenting today with ongoing vaginal discharge. Diagnosed with bacterial vaginosis at the walk-in clinic March 21 came to the ED March 26 open prescription for metronidazole gel. He now reports same symptoms started again. Denies any kind of smell but reports he did not have a smell last time. Not currently sexually active. Had gonorrhea chlamydia test did not earlier and was negative. No abdominal pain or cramping. Wet prep from March 21 actually does not show any clue cells You cells or Trichomonas occasional WBCs. Related Data Home Medications ?Medication ?Instructions ?Recorded ?Confirmed lamotrigine 200 mg tablet 200 mg PO DAILY 10/28/24 03/25/25 (Lamictal) lithium carbonate 300 mg 600 mg PO ONCE PM 03/21/25 03/25/25 tablet,extended release Allergies Allergy/AdvReac Type Severity Reaction Status Date / Time No Known Drug Allergies Allergy Verified 03/25/25 21:38 Patient History tobacco type: vaping alcohol intake frequency: 0-2 drinks per day Alcohol type: hard liquor Exam Initial Vital Signs Initial Vital Signs: Vital Signs Temperature 98.3 F 04/05/25 20:54 Pulse Rate 69 04/05/25 20:54 Respiratory Rate 16 04/05/25 20:54 Blood Pressure 128/87 04/05/25 20:54 Pulse Oximetry 100 04/05/25 20:54 Oxygen Delivery Method Room Air 04/05/25 20:54 GENERAL: Well-appearing, well-nourished and in no acute distress. CARDIOVASCULAR: peripheral pulses in tact, cap refill <2 sec RESPIRATORY: No respiratory distress, speaks in full sentences without difficulty ABDOMEN: Soft, nontender, no guarding or rebound EXTREMITIES: Normal range of motion, no clubbing or edema. Neurovascularly intact NEUROLOGICAL: Cranial nerves II through XII grossly intact. Normal gait and speech. SKIN: Warm, dry, no petechiae, no rashes or lesions. Course Orders Ordered: ED Orders 04/06/25 00:15 Chlamydia Gonorrhea PCR -URINE Stat Urine Microscopic Stat 04/06/25 00:27 Chlamydia/Gonoc/Myco Genital Stat Genital Culture Stat Wet Prep Tric BV Alvina Stat Vital Signs Vital signs: Vital Signs - 8 hr 04/05/25 20:54 Temperature 98.3 F Pulse Rate 69 Respiratory Rate 16 Blood Pressure 128/87 Pulse Oximetry 100 Oxygen Delivery Method Room Air MDM - Recheck/Abnormal Lab/Rx Lab Data Labs: Lab Results 04/06/25 Range/Units 00:15 Urine RBC None seen Urine WBC None seen Ur Squamous Epith Cells 1-5 /hpf Amorphous Sediment 1+ Urine Bacteria None seen Ur Culture Indicated? Cult not indicated Vol Urine Centrifuged 10ml (spun) Point of Care Testing Test Results Negative Urine Dip Bedside Urine Glucose Negative Bedside Urine Bilirubin - Negative Bedside Urine Ketone - Negative Urine Specific White 1.015 Bedside Urine Occult Blood - Negative Bedside Urine pH 6.0 Bedside Urine Protein - Negative Bedside Urine Urobilinogen - Negative Bedside Urine Nitrite - Negative Bedside Urine Leukocytes - Negative Esterase MDM Narrative Medical decision making narrative: Patient 29-year-old female to male transgender currently on hormones presenting today with ongoing vaginal discharge. Reports was diagnosed with BV however previous micro does not show any clue cells You cells or Trichomonas. Micro and went mount today or similar. Urinalysis negative for UTI, non. Recommended that patient have vaginal swabs done he wanted to self swab which seemed reasonable. Reports no sexual activity in the last couple of weeks abdomen soft nontender no prior history of STD. No need for imaging. At this time BV is not diagnosed. No need for prescription. Wet Prep Tric BV Alvina Final 04/06/25-0112 White blood cells Many WBCs seen Clue cells: None seen Yeast: None seen Trichomonas: None seen Discharge Plan Departure Patient Disposition: Home Clinical Impression: Feared complaint without diagnosis Activity Restrictions/Additional Instructions: *You have been diagnosed with bacterial vaginosis not found *What to do: At this time waiting on gonorrhea chlamydia but suspect they will be negative they were tested negative last time cultures pending. If you should need antibiotics I will call you *Continue to take medications as directed *Follow up with your primary care provider in 2-3 days or call [phone] *Return to ER if you should have increasing abdominal pain discomfort worsening discharge or any new, worsening or concerning symptoms Prescriptions: No Action lamotrigine [Lamictal] 200 mg tablet 200 mg PO DAILY lithium carbonate 300 mg tablet extended release 600 mg PO ONCE PM Referrals: Miscellaneous,Doctor, [Primary Care Provider, Medical] Stand Alone Forms: Patient Portal/API
[2025-04-06 00:45] LABS: Culture Indicated Urine Cult Not Indicated
[2025-04-06 02:23] LABS: Urine Chlamydia NOT DETECTED; Urine N gonorrhoeae NOT DETECTED
== END 2025-04-06 01:30 | disposition home or self-care (01) ==
PROVIDERS: Emergency Provider Emergency Medicine
DX: N89.8 Other specified noninflammatory disorders of vagina (principal)
CPT/HCPCS: 81003; 81015; 81025; 87070; 87147; 87205; 87210; 87491; 87563; 87591; 99282